=== PATIENT | female | born 1945 | race Native Hawaiian/Other Pacific Islander ===

== ENCOUNTER 2021-12-27 22:32 | Emergency (ER) | payer OTHER ==
[~2021-12-27] VITALS: Ht 152.4 cm; Wt 80.3 kg
[~2021-12-27 22:32] MED LIST: AMLODIPINE BESYLATE PO; ANTACID & ANTIG1 SUS PO; ANTI-DIARRHE2 MG PO; ASPIRIN/ENTERIC81 MG PO; ATENOLOL100 M1 PO; BUSP5TAB2 PO; CELEBREX100 MG PO; CLON0.5T36 PO; CLON1TAB18 PO; CYAN10009 IM; DICL1GEL2 TOP; DIPH25CA90 PO; DITROPAN XL10 MG PO; ESOMEPRAZOLE MA40 MG PO; FERROUS SULF325 MG PO; FLUOCINONIDE0.051 EX; FLUOXETINE20 MG PO; FLUP10TA3 PO; GEMFIBROZIL PO; HALO5INJ3 INJ; LATUDA80 MG PO; LIQUITEARS OPTH; LORA2INJ21 INJ; MYRBETRIQ25 MG PO; ONDA4TAB3 PO; ONDANSETRON4 M2 PO; OXYB5TAB64 PO; PERM5CRE9 TOP; PERPHENAZINE4 MG PO; RISP1TAB PO; SODIUM CHLORIDE PO; TYLENOL325 MG PO; UNITH DIRECT50 MCG PO; VENL37.511 PO; VITAMIN D50000 UNIT PO; [UNRECOGNIZED DRUG - CODE] PO
[2021-12-27 22:58] LABS: PLATELET COUNT 164 K/uL (152-353)
[2021-12-28 00:57] VITALS: BP 155/91; TEMP 97.9
[2021-12-28] MEDS ORDERED: FLUPHENAZINE PO (09:04)
[2021-12-28] MEDS ORDERED: RISP1TAB PO ×2 (09:05→12:34)
[2021-12-28] MEDS ORDERED: ATEN50TA36 PO (09:06)
[2021-12-28] MEDS ORDERED: BUSPIRONE5 MG PO (09:07)
[2021-12-28] MEDS ORDERED: GEMFIBROZIL PO (09:09)
[2021-12-28] MEDS ORDERED: EUTHYROX75 MCG PO (09:10)
[2021-12-28] MEDS ORDERED: [UNRECOGNIZED DRUG - CODE] PO ×2 (09:11→12:35)
[2021-12-28] MEDS ORDERED: AMLODIPINE BESYLATE PO (09:12)
[2021-12-28] MEDS ORDERED: DICLOFENAC SODIUM1 % TD (09:14)
[2021-12-28] MEDS ORDERED: TRAMADOL HYDROC50 MG PO (09:15)
[2021-12-28] MEDS ORDERED: FLUTICASON50 MCG/AC1 NAS (09:17)
[2021-12-28] MEDS ORDERED: ONDANSETRON HYDR4 MG PO (09:19)
[2021-12-28] MEDS ORDERED: ALBUTEROL108 MCG/AC PO (09:20)
[2021-12-28] MEDS ORDERED: FLUOCINONIDE EX (09:22)
[2021-12-28] MEDS ORDERED: CLON0.5T36 PO (09:23)
[2021-12-28] MEDS ORDERED: PROMETHAZINE12.5 M3 PO (09:24)
[2021-12-28] MEDS ORDERED: MILK OF MA400 MG/5 M PO (09:25)
[2021-12-28] MEDS ORDERED: ASCORBIC ACD500 MG PO (11:02)
[2021-12-28] MEDS ORDERED: MIRALAX17 GM PO (11:11)
[2021-12-28] MEDS ORDERED: SOD CHLORIDE1 GM PO ×2 (11:14→11:16)
[2021-12-28] MEDS ORDERED: OMEP20CA PO (11:20)
[2021-12-28] MEDS ORDERED: CVS STOOL SOFT100 MG PO (12:05)
[2021-12-28] MEDS ORDERED: OYSTER SHELL C500 M4 PO (12:06)
[2021-12-28] MEDS ORDERED: [UNRECOGNIZED DRUG - CODE] PO (12:08)
[2021-12-28] MEDS ORDERED: [UNRECOGNIZED DRUG - OTHER] PO ×2 (12:09→12:54)
[2021-12-28] MEDS ORDERED: VITAMIN D50000 UNIT PO (12:14)
[2021-12-28] MEDS ORDERED: ASPERCREME LIDOCA41 EX (12:17)
[2021-12-28] MEDS ORDERED: BUSP5TAB2 PO (12:30)
== END 2021-12-28 00:57 | disposition still patient (30) ==
LOC: ED 22:32
PROVIDERS: Emergency Medicine
DX: F03.91 Unspecified dementia, unspecified severity, with behavioral disturbance (principal); Z11.52 Encounter for screening for COVID-19; Z04.6 Encounter for general psychiatric examination, requested by authority
CPT/HCPCS: 36415; 80053; 83880; 85027; 87635; 93005; 99283; U0003